=== PATIENT | male | born 1945 | race Caucasian/White ===

== ENCOUNTER 2018-07-19 10:33 | Inpatient (IN) | payer MEDICARE, BC ==
[~2018-07-19] VITALS: Ht 175.3 cm; Wt 68.5 kg
[2018-07-19] MEDS ORDERED: TRILEPTAL300 MG PO (10:44)
[2018-07-19] MEDS ORDERED: KEPPRA1000 MG PO (10:44)
[2018-07-19] MEDS ORDERED: LIPITOR20 MG PO (10:44)
[2018-07-19] MEDS ORDERED: MEGACE40 MG PO (10:45)
[2018-07-19] MEDS ORDERED: ZOLOFT50 MG PO (10:45)
[2018-07-19] MEDS ORDERED: THERMOTABS 1 GM1 GM PO (10:45)
[2018-07-19] MEDS ORDERED: KLONOPIN0.5 MG PO (10:46)
[2018-07-19] MEDS ORDERED: COZAAR50 MG PO (10:46)
[2018-07-19] MEDS ORDERED: ABILIFY10 MG PO (10:47)
[2018-07-19 11:05] LABS: BASOPHILS 0.2 % (0-2); EOSINOPHILS 0.9 % (0-7); HEMATOCRIT 39.7 % (42.0-54.0); HEMOGLOBIN 15.1 g/dL (13.5-17.5); IMMATURE GRANULOCYTES 0.2 % (0-5); LYMPHOCYTES 15.9 % (15-50); MCH 32.8 pg (26.0-34.0); MCV 86.3 fL (80.0-100.0); MEAN PLATELET VOLUME 9.6 fL (7.4-10.4); MONOCYTES 9.3 % (2-11); NEUTROPHILS 73.5 % (40-80); PLATELET COUNT 187 10x3/uL (130-400); RDW 12.2 % (11.5-14.5); WBC 6.6 10x3/uL (4.8-10.8)
[2018-07-19 11:08] VITALS: BP 181/67
[2018-07-19 11:16] LABS: ALBUMIN 4.1 g/dL (3.4-5.0); ALKALINE PHOSPHATASE 118 U/L (46-116); ALT (SGPT) 41 U/L (10-68); CARBON DIOXIDE 24.6 mmol/L (21.0-32.0); CREATININE - SERUM 0.8 mg/dL (0.6-1.3); GLUCOSE 120 mg/dL (74-106); PROTEIN - SERUM 8.1 g/dL (6.4-8.2); UREA NITROGEN 15 mg/dL (7-18); eGFR NON AFRICAN AMERICAN > 90 mL/min (90-120)
[2018-07-19 11:26] LABS: CALC OSMOLALITY 232 mosm/kg (275-300); CHLORIDE - SERUM 81 mmol/L (98-107); SODIUM 114 mmol/L (136-145)
[2018-07-19 11:49] LABS: APPEARANCE CLEAR (CLEAR); BILIRUBIN NEGATIVE (NEGATIVE); COLOR YELLOW (YELLOW); GLUCOSE NEGATIVE (NEGATIVE); KETONE SMALL mg/dL (NEGATIVE); NITRITE NEGATIVE (NEGATIVE); PROTEIN 1+ mg/dL (NEGATIVE); SPECIFIC GRAVITY 1.015 (1.005-1.020); UROBILINOGEN NORMAL (NORMAL)
[2018-07-19 11:50] LABS: BACTERIA FEW /hpf (NONE SEEN); EPITHELIAL CELLS RARE /hpf (0-5); RED CELLS - URINE RARE /hpf (0-5); WHITE CELLS - URINE RARE /hpf (0-5)
[2018-07-19 12:00] VITALS: BP 181/79
[2018-07-19 13:33] VITALS: BP 173/78
[2018-07-19 16:56] VITALS: BP 188/81; BMI 22.0
[2018-07-19 17:31] VITALS: BP 188/81
[2018-07-19 20:01] LABS: CALC OSMOLALITY 247 mosm/kg (275-300); CARBON DIOXIDE 23.7 mmol/L (21.0-32.0); CHLORIDE - SERUM 90 mmol/L (98-107); CREATININE - SERUM 0.9 mg/dL (0.6-1.3); GLUCOSE 93 mg/dL (74-106); POTASSIUM - SERUM 4.5 mmol/L (3.5-5.1); SODIUM 123 mmol/L (136-145); UREA NITROGEN 13 mg/dL (7-18); eGFR NON AFRICAN AMERICAN 88 mL/min (90-120)
[2018-07-19 21:10] VITALS: BP 145/61
[2018-07-20] VITALS (7 sets, daily range): BP systolic 125–188; BP diastolic 64–97
[2018-07-20 01:33] LABS: CALC OSMOLALITY 248 mosm/kg (275-300); CALCIUM 8.2 mg/dL (8.5-10.1); CARBON DIOXIDE 22.6 mmol/L (21.0-32.0); CHLORIDE - SERUM 91 mmol/L (98-107); CREATININE - SERUM 0.7 mg/dL (0.6-1.3); GLUCOSE 137 mg/dL (74-106); SODIUM 123 mmol/L (136-145); UREA NITROGEN 11 mg/dL (7-18); eGFR NON AFRICAN AMERICAN > 90 mL/min (90-120)
[2018-07-20 05:25] LABS: BASOPHILS 0.3 % (0-2); HEMATOCRIT 36.7 % (42.0-54.0); HEMOGLOBIN 13.4 g/dL (13.5-17.5); IMMATURE GRANULOCYTES 0.3 % (0-5); LYMPHOCYTES 22.8 % (15-50); MCH 31.8 pg (26.0-34.0); MCHC 36.5 g/dL (31.0-37.0); MONOCYTES 12.5 % (2-11); NEUTROPHILS 61.1 % (40-80); RBC 4.22 10x6/uL (4.20-6.10); RDW 12.2 % (11.5-14.5)
[2018-07-20 05:26] LABS: PLATELET COUNT 149 10x3/uL (130-400)
[2018-07-20 05:36] LABS: CALC OSMOLALITY 245 mosm/kg (275-300); CALCIUM 8.4 mg/dL (8.5-10.1); CARBON DIOXIDE 23.9 mmol/L (21.0-32.0); CHLORIDE - SERUM 89 mmol/L (98-107); CREATININE - SERUM 0.7 mg/dL (0.6-1.3); GLUCOSE 118 mg/dL (74-106); MAGNESIUM - SERUM 1.9 mg/dL (1.8-2.4); POTASSIUM - SERUM 3.9 mmol/L (3.5-5.1); SODIUM 122 mmol/L (136-145); UREA NITROGEN 10 mg/dL (7-18); eGFR NON AFRICAN AMERICAN > 90 mL/min (90-120)
[2018-07-20 09:11] LABS: CALC OSMOLALITY 243 mosm/kg (275-300); CALCIUM 8.4 mg/dL (8.5-10.1); CARBON DIOXIDE 26.7 mmol/L (21.0-32.0); CHLORIDE - SERUM 86 mmol/L (98-107); CREATININE - SERUM 0.8 mg/dL (0.6-1.3); GLUCOSE 148 mg/dL (74-106); POTASSIUM - SERUM 3.7 mmol/L (3.5-5.1); UREA NITROGEN 9 mg/dL (7-18); eGFR NON AFRICAN AMERICAN > 90 mL/min (90-120)
[2018-07-20 09:12] LABS: SODIUM 120 mmol/L (136-145)
[2018-07-20 16:33] LABS: POTASSIUM - URINE 38.1 MMOL/L (12.0-62.0)
[2018-07-20 19:33] LABS: CALCIUM 8.4 mg/dL (8.5-10.1); CARBON DIOXIDE 22.2 mmol/L (21.0-32.0); CREATININE - SERUM 0.6 mg/dL (0.6-1.3); GLUCOSE 124 mg/dL (74-106); POTASSIUM - SERUM 3.8 mmol/L (3.5-5.1); UREA NITROGEN 8 mg/dL (7-18); eGFR NON AFRICAN AMERICAN > 90 mL/min (90-120)
[2018-07-20 19:35] LABS: CALC OSMOLALITY 233 mosm/kg (275-300); CHLORIDE - SERUM 83 mmol/L (98-107); SODIUM 116 mmol/L (136-145)
[2018-07-21 01:46] LABS: CALCIUM 8.5 mg/dL (8.5-10.1); CARBON DIOXIDE 22.9 mmol/L (21.0-32.0); CREATININE - SERUM 0.7 mg/dL (0.6-1.3); GLUCOSE 104 mg/dL (74-106); POTASSIUM - SERUM 3.9 mmol/L (3.5-5.1); UREA NITROGEN 7 mg/dL (7-18); eGFR NON AFRICAN AMERICAN > 90 mL/min (90-120)
[2018-07-21 01:47] LABS: CALC OSMOLALITY 230 mosm/kg (275-300); CHLORIDE - SERUM 82 mmol/L (98-107); SODIUM 115 mmol/L (136-145)
[2018-07-21 03:45] VITALS: BP 185/74
[2018-07-21 08:13] VITALS: BP 170/63
[2018-07-21 08:33] LABS: BASOPHILS 0.2 % (0-2); EOSINOPHILS 0.6 % (0-7); HEMATOCRIT 36.4 % (42.0-54.0); HEMOGLOBIN 13.5 g/dL (13.5-17.5); IMMATURE GRANULOCYTES 0.2 % (0-5); LYMPHOCYTES 14.1 % (15-50); MCH 31.5 pg (26.0-34.0); MCHC 37.1 g/dL (31.0-37.0); MEAN PLATELET VOLUME 9.9 fL (7.4-10.4); MONOCYTES 9.3 % (2-11); NEUTROPHILS 75.6 % (40-80); PLATELET COUNT 184 10x3/uL (130-400); RBC 4.28 10x6/uL (4.20-6.10); RDW 11.9 % (11.5-14.5); WBC 4.8 10x3/uL (4.8-10.8)
[2018-07-21 08:50] LABS: CALCIUM 8.7 mg/dL (8.5-10.1); CARBON DIOXIDE 23.7 mmol/L (21.0-32.0); CREATININE - SERUM 0.8 mg/dL (0.6-1.3); GLUCOSE 107 mg/dL (74-106); MAGNESIUM - SERUM 1.5 mg/dL (1.8-2.4); POTASSIUM - SERUM 4.2 mmol/L (3.5-5.1); UREA NITROGEN 8 mg/dL (7-18); eGFR NON AFRICAN AMERICAN > 90 mL/min (90-120)
[2018-07-21 08:58] LABS: CALC OSMOLALITY 232 mosm/kg (275-300); CHLORIDE - SERUM 84 mmol/L (98-107); SODIUM 116 mmol/L (136-145)
[2018-07-21 11:23] VITALS: BP 140/68
[2018-07-21 11:58] VITALS: Ht 175.3 cm; Wt 68.5 kg
[2018-07-21 14:00] LABS: CALC OSMOLALITY 236 mosm/kg (275-300); CALCIUM 8.5 mg/dL (8.5-10.1); CREATININE - SERUM 0.8 mg/dL (0.6-1.3); GLUCOSE 114 mg/dL (74-106); POTASSIUM - SERUM 3.8 mmol/L (3.5-5.1); UREA NITROGEN 10 mg/dL (7-18); eGFR NON AFRICAN AMERICAN > 90 mL/min (90-120)
[2018-07-21 14:02] LABS: CHLORIDE - SERUM 83 mmol/L (98-107); SODIUM 117 mmol/L (136-145)
[2018-07-21 19:51] LABS: CALC OSMOLALITY 238 mosm/kg (275-300); CALCIUM 8.5 mg/dL (8.5-10.1); CARBON DIOXIDE 22.4 mmol/L (21.0-32.0); CHLORIDE - SERUM 87 mmol/L (98-107); CREATININE - SERUM 0.7 mg/dL (0.6-1.3); GLUCOSE 94 mg/dL (74-106); MAGNESIUM - SERUM 1.7 mg/dL (1.8-2.4); POTASSIUM - SERUM 3.7 mmol/L (3.5-5.1); UREA NITROGEN 10 mg/dL (7-18); eGFR NON AFRICAN AMERICAN > 90 mL/min (90-120)
[2018-07-21 19:56] LABS: SODIUM 119 mmol/L (136-145)
[2018-07-21 21:39] VITALS: BP 157/57
[2018-07-22] VITALS: BP 156/60
[2018-07-22 01:20] LABS: CALC OSMOLALITY 245 mosm/kg (275-300); CALCIUM 8.4 mg/dL (8.5-10.1); CARBON DIOXIDE 22.2 mmol/L (21.0-32.0); CHLORIDE - SERUM 91 mmol/L (98-107); CREATININE - SERUM 0.7 mg/dL (0.6-1.3); GLUCOSE 89 mg/dL (74-106); POTASSIUM - SERUM 3.8 mmol/L (3.5-5.1); SODIUM 123 mmol/L (136-145); UREA NITROGEN 9 mg/dL (7-18); eGFR NON AFRICAN AMERICAN > 90 mL/min (90-120)
[2018-07-22 04:00] VITALS: BP 140/66
[2018-07-22 08:11] VITALS: BP 129/60
[2018-07-22 08:35] LABS: BASOPHILS 0.2 % (0-2); EOSINOPHILS 0.8 % (0-7); HEMATOCRIT 39.5 % (42.0-54.0); HEMOGLOBIN 14.7 g/dL (13.5-17.5); IMMATURE GRANULOCYTES 0.2 % (0-5); LYMPHOCYTES 22.8 % (15-50); MCHC 37.2 g/dL (31.0-37.0); MCV 86.1 fL (80.0-100.0); MEAN PLATELET VOLUME 9.9 fL (7.4-10.4); MONOCYTES 13.2 % (2-11); NEUTROPHILS 62.8 % (40-80); PLATELET COUNT 205 10x3/uL (130-400); RBC 4.59 10x6/uL (4.20-6.10); WBC 4.8 10x3/uL (4.8-10.8)
[2018-07-22 08:47] LABS: CALC OSMOLALITY 251 mosm/kg (275-300); CALCIUM 9.1 mg/dL (8.5-10.1); CARBON DIOXIDE 25.8 mmol/L (21.0-32.0); CHLORIDE - SERUM 90 mmol/L (98-107); GLUCOSE 116 mg/dL (74-106); PHOSPHOROUS 2.8 mg/dL (2.5-4.9); SODIUM 125 mmol/L (136-145); UREA NITROGEN 10 mg/dL (7-18); eGFR NON AFRICAN AMERICAN 78 mL/min (90-120)
[2018-07-22 12:09] VITALS: BP 149/64
[2018-07-22 15:17] VITALS: BP 136/59
[2018-07-22 20:00] VITALS: BP 136/65
[2018-07-23 04:00] VITALS: BP 135/61
[2018-07-23 05:22] LABS: BASOPHILS 0.4 % (0-2); EOSINOPHILS 1.8 % (0-7); HEMOGLOBIN 14.2 g/dL (13.5-17.5); IMMATURE GRANULOCYTES 0.2 % (0-5); LYMPHOCYTES 23.6 % (15-50); MCH 32.2 pg (26.0-34.0); MCHC 36.4 g/dL (31.0-37.0); MEAN PLATELET VOLUME 9.5 fL (7.4-10.4); MONOCYTES 12.2 % (2-11); NEUTROPHILS 61.8 % (40-80); PLATELET COUNT 214 10x3/uL (130-400); RBC 4.41 10x6/uL (4.20-6.10); RDW 12.2 % (11.5-14.5); WBC 5.5 10x3/uL (4.8-10.8)
[2018-07-23 05:57] LABS: MCV 88.4 fL (80.0-100.0)
[2018-07-23 05:59] LABS: CALC OSMOLALITY 258 mosm/kg (275-300); CALCIUM 8.9 mg/dL (8.5-10.1); CARBON DIOXIDE 21.9 mmol/L (21.0-32.0); CHLORIDE - SERUM 95 mmol/L (98-107); CREATININE - SERUM 0.9 mg/dL (0.6-1.3); GLUCOSE 109 mg/dL (74-106); MAGNESIUM - SERUM 2.1 mg/dL (1.8-2.4); PHOSPHOROUS 3.2 mg/dL (2.5-4.9); POTASSIUM - SERUM 3.9 mmol/L (3.5-5.1); SODIUM 129 mmol/L (136-145); UREA NITROGEN 11 mg/dL (7-18); eGFR NON AFRICAN AMERICAN 88 mL/min (90-120)
[2018-07-23 07:52] VITALS: BP 142/56
[2018-07-23 11:34] VITALS: BP 140/59
--- NOTE | 2018-07-23 16:26 | MORECARE ---
CASE MANAGEMENT DISCHARGE SUMMARY PATIENT: FRANK GUAN UNIT: [id number] ADM DATE: 07/19/18 AGE: 72 : 47 SEX: M ROOM/BED: D.2112 AUTHOR: JEFFREY PERRY PHYSICIAN: REFERRING PHYSICIAN: CHARLOTTE GRIFFIN MD DATE OF SERVICE: 07/23/18 Discharge Plan Patient Name: FRANK GUAN Facility: [facility]:[place] : 1945 Planned Disposition: Home Anticipated Discharge Date: 07/23/18 Discharge Date: 07/23/2018 Expected LOS: 4 Initial Reviewer: [id number] Initial Review Date: 07/23/2018 Generated: 07/23/18 5:26 pm Comments DCP- Discharge Planning Updated by [email or web address]: Jeferson Gaona on 07/23/18 3:[address] Patient Name: FRANK GUAN Admission Status: ER Accout number: [id number] Admission Date: 07-19-2018 : 1945 Admission Diagnosis: Attending: CHARLOTTE GRIFFIN Current LOS: 4 Anticipated DC Date: 07-23-2018 Planned Disposition: Home Primary Insurance: MEDICARE PART A ONLY Discharge Planning Comments: CM MET WITH PT IN ROOM TO DISCUSS DISCHARGE PLANNING AND NEEDS. PT REPORTS LIVING AT HOME INDEPENDENTLY WITH SPOUSE. PT HAS CANE AND WALKER IF NEEDED BUT DOES NOT USE EITHER ONE; PT HAS NO MEDICAL EQUIPMENT PROVIDER PREFERENCE AND NO OUTSIDE SERVICES ASSISTING IN THE HOME. CM DISCUSSED AVAILABILITY OF HOME HEALTH, REHAB SERVICES AND MEDICAL EQUIPMENT. PT DENIES DISCHARGE NEEDS, REPORTS HIS SON WILL PICK HIM UP FOR DISCHARGE HOME. IMPORTANT MESSAGE FROM MEDICARE PROVIDED AND EXPLAINED. ADMINISTRATION MANAGER NURSE NOTIFIED. Jewelry Salesperson: Jeferson Gaona DCPIA - Discharge Planning Initial Assessment Updated by [email or web address]: Jeferson Gaona on 07/23/18 4:22 pm * Is the patient Alert and Oriented? Yes * How many steps to enter\exit or inside your home? NONE * PCP DR. WALKER * [facility]acy [facility] * Preadmission Environment Home with Family * ADLs Independent * Equipment Cane Walker * Other Equipment NO MEDICAL EQUIPMENT PROVIDER PREFERENCE * List name and contact numbers for known caregivers / representatives who currently or will assist patient after discharge: WADE PAYNEN, SPOUSE, CHARLOTTE GUAN, SON, * Verbal permission to speak to the caregivers and representatives has been obtained from the patient. Yes * Community resources currently utilized None * Please name any agencies selected above. NONE * Additional services required to return to the preadmission environment? No * Can the patient safely return to the preadmission environment? Yes * Has this patient been hospitalized within the prior 30 days at any hospital? No Coverage Notice Reviewer: [id number] William Gaona Notice Issued Date-Time: 07/23/2018 12:35 Notice Type: IM Discharge Notice Notice Delivered To: Patient Relationship to Patient: Donor Services Coordinator Name: Delivery Method: HAND - Hand Delivered Dulce Days: Prior Verbal Notification: Recipient Understood Notice: Yes Recipient Signature: Yes Med Rec Note Co-signed by Attending: Coverage Notice Comment: Patient Name: FRANK GUAN Page [id number] at 1626 All edits/amendments must be made on the electronic document DICTATION DATE: 07/23/186 SPRING ENCASER: JOHN 07/23/181625 RPT#: [id number] DC DATE:07/23/18 STATUS: DIS IN [facility] [address] [place] [address] END OF REPORT
== END 2018-07-23 13:45 | disposition home or self-care (01) | DRG 640 ==
LOC: D.ER 10:33 → D.M2 14:09
PROVIDERS: Emergency Medicine; Internal Medicine Nephrology; ADMIT Emergency Medicine
DX: E87.1 Hypo-osmolality and hyponatremia (principal); G93.41 Metabolic encephalopathy; F17.213 Nicotine dependence, cigarettes, with withdrawal; E86.0 Dehydration; J44.9 Chronic obstructive pulmonary disease, unspecified; E03.9 Hypothyroidism, unspecified; I10 Essential (primary) hypertension; G40.909 Epilepsy, unspecified, not intractable, without status epilepticus; F32.9 Major depressive disorder, single episode, unspecified; F41.9 Anxiety disorder, unspecified; Z86.73 Personal history of transient ischemic attack (TIA), and cerebral infarction without residual deficits